=== PATIENT | male | born 1990 | race Asian ===

== ENCOUNTER 2016-11-06 12:52 | Emergency (ER) | payer OTHER ==
[~2016-11-06] VITALS: Ht 167.6 cm; Wt 68.2 kg
[2016-11-06 13:04] VITALS: BP 138/91; PULSE 103; RESP 16; O2SAT 98
--- NOTE | 2016-11-06 13:11 | ED.REPORT ---
HPI-General Illness Date of Service Nov 06, 2016 ED Provider: Rory Marshall MD History of Present Illness: 26-year-old male here for vomiting, diarrhea, body aches, cough since yesterday. Has made his being seen for the same symptoms. He is keeping fluids down today, symptoms are improved today. He has not thrown up today. Body aches of the worst that he has tried nothing for this Nursing Notes Stated Complaint: VOMITING/FEVER Chief Complaint: FLU/Cold Symptoms Nursing Notes Reviewed: Yes Scheduled PRN Ondansetron ODT (Zofran ODT) 4 Mg Tablet 4 MG PO Q4H PRN PRN For Nausea General Time Seen by MD: 13:08 Chief Complaint Flu-like illness Hx Obtained From: Patient Arrived By: Walk-in Sudden in Onset?: Yes Onset Occurred: 3 days ago Symptom Duration: Since onset Location: : Abdomen Quality: Painful Severity: Current: Mild Severity: Maximum: Moderate Recent Healthcare: No recent doctor visit, No recent hospitalization Similar Sx Previous: No Past Medical History Past Medical History None Past Surgical History None Family History Noncontributory Social History Other Social History: Good social support, Local resident Ambulatory Status Independent Review of Systems cough, flu like symptoms, symptoms improved today Full Review of Systems Constitutional: Reports: Fever, Malaise Ears / Nose / Throat: Reports: Nasal congestion, Sore throat GI: Reports: Abdominal pain, Diarrhea, Nausea, Vomiting Complete sys rev & neg: except as marked. Physical Exam Vital Signs Vital Signs Date Time Temp Pulse Resp B/P Pulse Ox O2 Delivery O2 Flow Rate FiO2 11/06/16 15:36 37.3 98 122/78 97 Room Air 11/06/16 13:04 36.8 103 16 138/91 98 Initial VS: Reviewed General/Constitutional: Well-developed, Well-nourished Head / Eyes: Atraumatic, Normocephalic, PERRL ENT: Mucous membranes moist, Conjunctiva normal, No scleral icterus Neck: Supple, Non-tender, Full range of motion Respiratory: Breath sounds normal, Clear to auscultation, No respiratory distress Cardiovascular: Regular rate & rhythm, Heart sounds normal, Intact distal pulses Abdomen / GI: Soft, Non-tender, No guarding, No rebound, No distention Lymphatic: No lymphadenopathy Skin: Warm, Dry, No cyanosis Neurologic: Alert, Oriented, Nonfocal Psychiatric: Mood/affect normal, Behavior normal, Normal thought content Interpretation & Diagnostics Interpretation & Diagnostics: neg flu swab Re-Eval/Medical Decision Med Decision/Clinical Course Discussed negative influenza, likely another virus follow-up if worsening Source of Hx: Old records Counseled Regarding: Diagnosis, Need for follow-up, When/why to return to ED Discharge & Departure Primary Impression: Viral illness Disposition: Home Discharge Condition All VS Reviewed: Yes Condition: Stable Patient Instructions: Influenza (DC) Additional Instructions: Thank you for seeking care at the emergency room. This fluids get lots of rest take a deep breath in and Tylenol for body aches and Zofran for nausea It is difficult for us to make definitive diagnoses in the ED but we believe that you are experiencing a variation of influenza. Our primary goal today in the ED was to evaluate you for any life-threatening conditions. Your evaluation was reassuring. You will be discharged with a prescription for zofran for nausea You should follow-up with your primary doctor in the next week. You should return to the ED immediately if you develop fevers, vomiting, cough, shortness of breath, chest pain, lightheadedness, weakness or any other concerning signs or symptoms. Thank you for letting us partake in your care today. Referrals: [facility] (PCP) EDSupervising Provider for APC: Rory Marshall MD Attestation Portions of this note were transcribed by Opal Dutta. I, Dr. Marshall personally performed the history, physical exam and medical decision-making; I reviewed and confirmed the accuracy of the information in the transcribed note. Signed by: Reena Stokes, 11/06/2016 at [Time]. Attending Statement Attending attestation: I saw this patient in conjunction with the above named APC. I agree with the workup, evaluation, treatment and disposition. Rory Estevez MD, MD Nov 06, 2016 13:11 Opal Dutta Nov 06, 2016 13:14 Sara Peres Nov 06, 2016 13:29
[2016-11-06] MEDS ORDERED: Ondansetron 8 mg ODT Tablet PO ONE (13:15)
[2016-11-06] MEDS ORDERED: ONDA4TAB9 PO (15:25)
[2016-11-06 15:36] VITALS: BP 122/78; PULSE 98; O2SAT 97
== END 2016-11-06 15:37 | disposition home or self-care (01) ==
LOC: SED 12:52
DX: B34.9 Viral infection, unspecified (principal)